=== PATIENT | female | born 1970 | race Caucasian/White ===

== ENCOUNTER → 2020-12-16 | Outpatient (CLI) | payer OTHER ==
--- NOTE | 2020-12-16 13:53 | RAD ---
EXAM: Nuclear bone scan. HISTORY: Left paraspinal back pain. TECHNIQUE: Following the intravenous injection of 24 mCi of Tc 99m labeled methylene diphosphonate (M DP), whole body imaging was performed. IMPRESSION: There is no prior study for comparison at the time of dictation. FINDINGS: There is a focus of increased radiotracer activity within the posterior lateral left ninth or eighth rib. There is suspected degenerative activity involving the shoulders, elbows and feet. The re is mild asymmetric activity involving the left greater than right femoral cortex which may be due to slight asymmetric leg positioning. No focal lesion is seen. There is expected tracer activity with in the renal collecting system. There is suspected contamination of radiotracer within the right ante cubital fossa. There is mild scoliosis. IMPRESSION: 1. Focus of radiotracer activity involving the posterior left eighth and ninth rib. This may be due t o an acute or subacute fracture or solitary osseous lesion. Correlate for pain in this location. The rib numbering is difficult to confirm given the possibility of hypoplastic T12 ribs and no prior imag ing for correlation. 2. Suspected degenerative activity involving the shoulders, elbows and knees and slight suspected asy mmetrically nodular activity involving the left greater than right femoral cortex. 3. Mild scoliosis. Electronically signed by: Gracie Oliveira MD (12/16/2020 1:50 PM) [id number]
== END ==
LOC: NM 08:30
PROVIDERS: ATTEND Internal Medicine
DX: M41.84 Other forms of scoliosis, thoracic region (principal); M54.89 Other dorsalgia; Z88.0 Allergy status to penicillin; Z88.1 Allergy status to other antibiotic agents; Z88.2 Allergy status to sulfonamides
CPT/HCPCS: 78306; A9503